=== PATIENT | male | born 1990 | race Caucasian/White ===

== ENCOUNTER 2025-04-08 15:18 | Inpatient (IN) | payer MEDICAID, OTHER ==
[2025-04-08] MEDS: NICOTINE 14MG/24HR PATCH TRANSDERM STA (19:37)
[2025-04-08] MEDS ORDERED: LORazepam 1 MG/0.5 ML VIAL IM PRN (21:12)
[2025-04-08] MEDS ORDERED: HALOPERIDOL LACTATE 5 MG/ML 1 ML VIAL IM PRN (21:12)
[2025-04-08] MEDS ORDERED: IBUPROFEN 600 MG TAB PO PRN (23:23)
[2025-04-08] MEDS ORDERED: ACETAMINOPHEN TAB 325 MG TAB PO PRN (23:23)
[2025-04-08] MEDS ORDERED: MAG HYDROX/AL HYDROX/SIMETH 30 ML CUP PO PRN (23:23)
[2025-04-08] MEDS ORDERED: MAGNESIUM HYDROXIDE 2,400 MG/30 ML CUP PO PRN (23:23)
--- NOTE | 2025-04-09 00:54 | ED ---
General Adult HPI - General Chief complaint: Psychiatric Symptoms Stated complaint: Anxiety Time Seen by Provider: 04/08/25 15:42 Source: patient Mode of arrival: ambulatory Limitations: no limitations - History of Present Illness Initial comments: Patient is a 35 y/o male, transitioning to female, goes by "Seema" presenting for paranoia. History bipolar disorder, questionable hx schizophrenia, per pt and family members. States was admitted to psychiatric facility in October for similar. Was prescribed ability however does not take this. Pt states over the last 2 weeks has had worsening feelings of paranoia and anxiety, worsened by intermittent methamphetamine abuse. This morning, pt used meth at 10 AM and went to a local gas station. There was found to be acting strangely so brought in by PD. Pt does not wish to disclose what they are particularly paranoid about. Endorses auditory hallucinations however refuses to discuss what she is hearing. States they are not telling her to harm herself or others. Denies SI/HI. Denies additional systemic symptoms. Denies fevers, chills, nausea, vomiting, headache, numbness or weakness. Pt's sister filed petition detailing concerns for pt's paranoid behavior and states pt becomes aggressive when she is feeling paranoid. - Related Data Home Medications Medication Instructions Recorded Confirmed No Known Home Medications 04/08/25 04/08/25 Previous Rx's Medication Instructions Recorded ARIPiprazole [Abilify] 2 mg PO DAILY #30 tab 12/03/19 Escitalopram [Lexapro] 20 mg PO DAILY #30 tab 12/03/19 Nicotine 7Mg/24Hr Patch [Habitrol] 1 patch TRANSDERM DAILY #28 patch 12/03/19 Dolutegravir Sodium [Tivicay] 50 mg PO DAILY #28 tab 01/24/23 Emtricitabine/Tenofovir (Tdf) 1 tab PO DAILY #28 tab 01/24/23 [Truvada 200 mg-300 mg Tablet] Allergies Allergy/AdvReac Type Severity Reaction Status Date / Time No Known Allergies Allergy Verified 04/09/25 09:38 Review of Systems ROS Statement: Those systems with pertinent positive or pertinent negative responses have been documented in the HPI. ROS Other: All systems not noted in ROS Statement are negative. Past Medical History History of Any Multi-Drug Resistant Organisms: None Reported Past Surgical History: No Surgical Hx Reported Past Psychological History: Anxiety, Bipolar, Depression Smoking Status: Vaper Past Alcohol Use History: None Reported Past Drug Use History: Methamphetamine - Past Family History Mother Additional Family Medical History / Comment(s): heart disease Father Family Medical History: No Reported History General Exam - General Exam Comments Initial Comments: PE: CONSTITUTIONAL: [no apparent distress, well appearing, disheveled] SKIN: [warm, dry, no jaundice, hives or petechiae] EYES:[ pupils are equally round, extraocular movements intact without nystagmus, clear conjunctiva, non-icteric sclera] HENT: [normocephalic, atraumatic, moist mucus membranes,] NECK: , [Full range of motion, normal appearance] PULMONARY: [clear to auscultation without wheezes, rhonchi, or rales, normal excursion, no accessory muscle use and no stridor] CARDIOVASCULAR:[ regular rate, rhythm, normal S1 and S2. No appreciated murmurs, rubs or gallops. Extremitites are well perfused] MUSCULOSKELETAL: [Extremities have no gross deformity ] NEUROLOGIC: [_a/o x 3, GCS 15, normal mentation and speech. Moves all extremities x 4 without motor or sensory deficit] PSYCHIATRIC:[ anxious mood and guarded affect, makes poor eye contact, difficulty sitting still, thought process is overall linear, though hypervigilent Limitations: no limitations Course Vital Signs 04/08/25 04/08/25 15:22 22:18 Temperature 99.0 F 98.5 F Pulse Rate 129 H 122 H Respiratory 18 17 Rate Blood Pressure 153/117 147/90 O2 Sat by Pulse 98 96 Oximetry Medical Decision Making - Medical Decision Making Was pt. sent in by a medical professional or institution (, PA, [employer], urgent care, hospital, or senior care...) When possible be specific @ -No Did you speak to anyone other than the patient for history (EMS, parent, family, police, friend...)? What history was obtained from this source @Spoke with patient's sister and mother, state patient has a history of bipolar disorder and potentially schizophrenia, patient was admitted to psychiatric facility in October Did you review nursing and triage notes (agree or disagree)? Why? @ -I reviewed nursing and triage notes Were old charts reviewed (outside hosp., previous admission, EMS record, old EKG, old radiological studies, urgent care reports/EKG's, senior care records)? Report findings @ -Medical records reviewed patient had head CT performed on 01/28/2024 due to trauma, ultimately this showed no acute process or evidence of cervical spine fracture Differential Diagnosis (chest pain, altered mental status, abdominal pain women, abdominal pain men, vaginal bleeding, weakness, fever, dyspnea, syncope, headache, dizziness, GI bleed, back pain, seizure, CVA, palpatations, mental health, musculoskeletal)? Differential Mental Health Depression, anxiety, bipolar, psychosis, schizophrenia, borderline personality, situational depression, adjustment disorder, behavioral disorder, brain tumor, malingering, substance abuse, medication reaction, degenerative neurologic disorder, lupus.... This is not meant to be all-inclusive list EKG interpreted by me (3pts min.). @ -As above X-rays interpreted by me (1pt min.). @ -None done CT interpreted by me (1pt min.). @ -None done U/S interpreted by me (1pt. min.). @ -None done What testing was considered but not performed or refused? (CT, X-rays, U/S, labs)? Why? CT head was considered however this is not new behavior for the patient, patient has known mental health history, known methamphetamine What meds were considered but not given or refused? Why? @ -None Did you discuss the management of the patient with other professionals (professionals i.e. , PA, [employer], lab, RT, psych nurse, clinical social work therapist, patient case manager, teacher, immigration services officer, telephonic case manager)? Give summary @ -Discussed with EPS RN recommended inpatient psychiatric hospitalization Was smoking cessation discussed for >3mins.? @ -No Was critical care preformed (if so, how long)? @ -No Were there social determinants of health that impacted care today? How? (Homelessness, low income, unemployed, alcoholism, drug addiction, transportation, low edu. Level, literacy, decrease access to med. care, correction, rehab)? @Substance abuse Was there de-escalation of care discussed even if they declined (Discuss DNR or withdrawal of care, Hospice)? @ -No What co-morbidities impacted this encounter? (DM, HTN, Smoking, COPD, CAD, Cancer, CVA, ARF, Chemo, Hep., AIDS, mental health diagnosis, sleep apnea, morbid obesity)? @Bipolar disorder Was patient admitted / discharged? Hospital course, mention meds given and route, prescriptions, significant lab abnormalities, going to OR and other pertinent info. @ -Admission to psychiatric unit-this is a 35-year-old male, identifies as female presenting today for paranoia. On my assessment patient is disheveled appearing, is pacing around the room, asked for eye contact, guarded and anxious. Does not appear to be responding to internal stimuli. Denies SI or HI. Is conversant and cooperative. Vital signs on arrival did show tachycardia and hypertension I suspect this is secondary to methamphetamine use. Patient was medically cleared for EPS evaluation. After evaluation by EPS, patient was recommended for inpatient psychiatric hospitalization. Patient sister filed a petition detailing patient coming aggressive when paranoid. Clinical certification was recommended by APS, filed by myself. I did discuss this with the patient. Patient was admitted to inpatient psychiatric unit. Undiagnosed new problem with uncertain prognosis? @ -No Drug Therapy requiring intensive monitoring for toxicity (Heparin, Nitro, Insulin, Cardizem)? @ -No Were any procedures done? @ -No Diagnosis/symptom? @, Methamphetamine abuse, paranoia Acute, or Chronic, or Acute on Chronic? @ -Acute Uncomplicated (without systemic symptoms) or Complicated (systemic symptoms)? @ -Complicated Side effects of treatment? @ -No Exacerbation, Progression, or Severe Exacerbation? @ -No - Lab Data Lab Results 04/08/25 Range/Units 19:28 SARS-CoV-2 (PCR) Not Detected (Not Detectd) Disposition Clinical Impression: Paranoia, Methamphetamine abuse Disposition: TRANSFER TO PSYCH HOSP/UNIT Condition: Stable
[2025-04-09] MEDS: LORazepam 1 MG TAB PO PRN (02:56)
--- NOTE | 2025-04-09 12:31 | P.HP ---
Psychiatric H&P - . H&P Date: 04/09/25 History & Physical: Allergies Allergy/AdvReac Type Severity Reaction Status Date / Time No Known Allergies Allergy Verified 04/09/25 09:38 Vital Signs Temp 98.5 F 04/08/25 22:30 Pulse 92 04/08/25 22:30 Resp 20 04/08/25 22:30 BP 137/74 04/08/25 22:30 Pulse Ox 98 04/08/25 22:30 FiO2 Intake & Output 04/08/25 04/09/25 04/09/25 18:59 06:59 18:59 Weight 72.575 kg Laboratory Last Values SARS-CoV-2 (PCR) Not Detected (Not Detectd) 04/08/25 19:28 04/09/25 12:21 IDENTIFYING DATA: Patient is a 35-year-old transgendered female (goes by Seema), living independently, unemployed CHIEF COMPLAINT: Paranoia, psychosis HPI: Patient presented to the hospital with paranoia in the context of methamphetamine use. Patient ended up being brought in by police after being found acting strangely at a local gas station after using meth that day. Sister filled out petition for patient regarding paranoia and increased aggression. EPS assessment reveals, "Upon assesment pt is extrememly guarded and paranoid. Pt is looking around the room searching, appears to be responding to stimuli. Pt denies SI, HI. Pt admits to methamphetamine use, last use yesterday. Pt states they only started a few day ago. Pt was recently admitted at [facility] for 3 weeks d/t psychosis and has been off medications since discharge. Hx of heroin use, current meth use, denies etoh." Patient seen and evaluated on the unit and was agreeable with speaking to marine underwriter in her room. She initially was guarded regarding her substance use, only mentioning nicotine however upon probing she did admit to using meth "on occasion", feeling as though a lot of the symptoms are directly related to this. Patient is not on board with rehab despite encouragement however she claims she will go to rehab if she relapses again. Patient did appear lucid, clear on assessment. Patient did receive Haldol/Ativan as needed overnight. Patient denied ever going to rehab before. Patient denies any suicidal or homicidal ideations intent or plan. At this time patient denies any auditory or visual hallucinations. Patient denies any flight of ideas racing thoughts and increased in goal directed behavior. Patient admits to using methamphetamine, nicotine, rare alcohol and cannabis use. PAST PSYCHIATRIC HISTORY: Patient has a history of unspecified psychosis, MDD. Patient denies being on any psychiatric medications. Her most recent med list from [facility] back in October reveals Abilify 5 mg daily however she has been nonadherent with this med. Patient was hospitalized last in September 2024. Patient denies any psychiatric outpatient follow-up. Patient denies any history of suicide attempts in the past. PMH: as per ER note ALLERGIES: as per EMR SUBSTANCE USE HISTORY: Patient did admit to recent meth use, daily nicotine FAMILY PSYCHIATRIC/SUBSTANCE USE HISTORY: Denies SOCIAL HISTORY: Patient recently changed her name to Seema 2 weeks ago, is single and has no children. She completed high school, is unemployed and lives independently. MENTAL STATUS EXAM: General Appearance: Patient appears to be stated age is alert, directable, and attempts to cooperate. Patient appears to have poor hygiene and grooming. Behavior: Patient is seated without any agitated behavior. Speech: Patient's speech is fluent and nonpressured. Mood/Affect: Patient reports their mood is "better", affect is congruent and blunted but reactive Suicidality/Homicidality: Patient denies having any homicidal ideation intent or plan. Denies any suicidal ideations intent or plan Perceptions: Patient denies any visual hallucinations and denies any auditory hallucinations Though content/process: There is no evidence of any delusional thought content and thought process is linear and goal-directed. There is no evidence of paranoia Memory and concentration: AOX3, grossly intact for the purposes of this session. Can spell "WORLD" backwards Judgment and insight: Poor STRENGTHS/WEAKNESSES: strength is that patient is resilient, has support from sister. Weakness is that patient has poor judgment, abuses substances and is impulsive INTELLECT: Average IMPRESSIONS: Substance-induced psychotic disorder Stimulant use disorder Nicotine dependence PLAN: -Patient is admitted under voluntary status to [facility] for stabilization of psychiatric symptoms and safety. Patient has signed adult voluntary form and and is placed in patient's chart. -Medications : Start melatonin 10 mg at bedtime for insomnia. Will monitor patient for the next 24 hours and then will likely discharge tomorrow back home. Patient is not agreeable with rehab. Will try to encourage patient to obtain UDS - Ativan and Haldol PRN for agitation/aggression -Patient was counselled on substance abuse and desired to cut back on use-Will offer patient subtance use rehab however declined -Patient was informed of the risks, benefits and side effects of the medication and patient verbally consented to taking the medications. Patient did not sign med consent form and was placed in chart. Patient offered and declined patient education sheet for psychotropic medications. -Internal Medicine consult to perform medical evaluation and physical. -NRT -nicotine patch -SW on board for discharge planning. Encourage patient to participate in groups to work on coping skills. Anticipate discharge back home tomorrow pending stabilization of psychosis
[2025-04-09] MEDS: MELATONIN 5 MG TABLET PO SCH (20:41)
--- NOTE | 2025-04-09 21:01 | P.CONS ---
History of Present Illness - Reason for Consult Consult date: 04/09/25 medical co management - Chief Complaint psychosis - History of Present Illness Seema is a 35-year-old male who is assigned male at . She presents to the hospital today as she is complaining of psychosis. She reports that she has had increased paranoia and is worried about her safety. She reports that she also has been having auditory hallucinations. She reports that she has been hearing voices in her entire life and she has learned to cope with her voices. She denies any suicidal ideation. She denies any homicidal ideation. She reports that she does use recreational drugs and has been using methamphetamines. She reports she does not use any alcohol and does vape. I have reviewed most of her medications and the majority of which are hormone replacement therapy. She reports that she is on estradiol injections for which she takes twice weekly spironolactone 25 mg daily progesterone 100 mg daily along with finasteride. Through shared mutual decision making I had restarted her estradiol orally as we do not have injections. Review of Systems ROS negative except for hpi Past Medical History Past Medical History: No Reported History History of Any Multi-Drug Resistant Organisms: None Reported Past Surgical History: No Surgical Hx Reported Past Anesthesia/Blood Transfusion Reactions: No Reported Reaction Past Psychological History: Anxiety, Bipolar, Depression Smoking Status: Vaper Past Alcohol Use History: None Reported Past Drug Use History: Methamphetamine - Past Family History Mother Additional Family Medical History / Comment(s): heart disease Father Family Medical History: No Reported History Medications and Allergies Home Medications Medication Instructions Recorded Confirmed Type ARIPiprazole [Abilify] 2 mg PO DAILY #30 tab 12/03/19 01/15/20 Rx Escitalopram [Lexapro] 20 mg PO DAILY #30 tab 12/03/19 01/15/20 Rx Nicotine 7Mg/24Hr Patch [Habitrol] 1 patch TRANSDERM DAILY #28 patch 12/03/19 01/15/20 Rx Dolutegravir Sodium [Tivicay] 50 mg PO DAILY #28 tab 01/24/23 Rx Emtricitabine/Tenofovir (Tdf) 1 tab PO DAILY #28 tab 01/24/23 Rx [Truvada 200 mg-300 mg Tablet] No Known Home Medications 04/08/25 04/08/25 History Allergies Allergy/AdvReac Type Severity Reaction Status Date / Time No Known Allergies Allergy Verified 04/09/25 09:38 Physical Exam Vitals: Vital Signs Temp Pulse Pulse Resp BP BP Pulse Ox 04/08/25 22:30 98.5 F 92 20 137/74 98 04/08/25 22:18 98.5 F 122 H 17 147/90 96 Intake and Output 04/09/25 04/09/25 04/09/25 06:59 14:59 22:59 Other: Weight 72.575 kg General: non toxic, no distress Derm: warm, dry Head: atraumatic, normocephalic, symmetric Eyes: EOMI, no lid lag, anicteric sclera, pupils equal round reactive to light ENT: Nose and ears atraumatic, no thrush, no pharyngeal erythema Neck: No thyromegaly, no cervical lymphadenopathy, trachea midline, supple Mouth: no lip lesion, mucus membranes moist Cardiovascular: S1S2 reg, no murmu Lungs: clear to ascultation bilateral, no ronchi, no rales, no wheeze, no accessory muscle use Abdominal: soft, nontender to palpation, no guarding, no appreciable organomegaly, normal bowel sounds Ext: no gross muscle atrophy Neuro: moving all extremeties psontaously Psych: calm and cooperative Assessment and Plan Assessment: #) Substance induced psychosis. uses methamphtamine at home. primary management as per psychiatry team. methameine cessationr ecommended #) Auditory hallucinations, expresses lifelong histoyr of auditory hallucinations, management as per psychiatry #) Vapaing use, recommedn cessation. nicotine patch while inpatient #) Transgder woman. She uses HRT at home. We will restart home sprinolactone 25 mg daily and finsetride 5 mg daily. She uses estradiol injections twice weekly. Through shared decision making we will start estradiol 1.5 mg daily. She is al so on progesterone which is not part of hospital form Thank you for allowing us to take care of this patient. please do not hesistate to contact us if any questiona rise. cbc, cmp, a1c, uds, lipid profile and tsh pending at the time of this writing.
[2025-04-09 22:10] VITALS: RESP 18
[2025-04-10] MEDS: FINASTERIDE 5 MG TAB PO SCH (08:16)
[2025-04-10] MEDS: SPIRONOLACTONE 25 MG TAB PO SCH (08:16)
[2025-04-10 08:19] LABS: Basophils # (A) 0.02 10*3/uL (0.00-0.10); Basophils % (A) 0.4 %; Eosinophils # (A) 0.23 10*3/uL (0.04-0.35); Eosinophils % (A) 4.1 %; HCT 40.6 % (39.6-50.0); HGB 13.5 g/dL (13.0-17.0); Lymphocytes # (A) 1.59 10*3/uL (0.90-5.00); Lymphocytes % (A) 28.6 %; MCH 31.1 pg (27.0-32.0); MCHC 33.3 g/dL (32.0-37.0); MCV 93.5 fL (80.0-97.0); Monocytes # (A) 0.46 10*3/uL (0.20-1.00); Monocytes % (A) 8.3 %; Neutrophils # (A) 3.22 10*3/uL (1.80-7.70); Neutrophils % (A) 58.1 %; Platelet Count 286 10*3/uL (140-440); RBC 4.34 10*6/uL (4.40-5.60); RDW 11.9 % (11.5-14.5); WBC 5.55 10*3/uL (4.50-10.00)
[2025-04-10 08:21] VITALS: BP 106/55; PULSE 96; TEMP 97.4
[2025-04-10 08:32] LABS: ALT 8 U/L (4-49); AST 15 U/L (17-59); African American GFR (CKD) >90 (>60 ml/min/1.73 sqM); Albumin 3.5 g/dL (3.5-5.0); Alkaline Phosphatase 40 U/L (38-126); Anion Gap 6 mmol/L; Blood Urea Nitrogen 6 mg/dL (9-20); Calcium 9.0 mg/dL (8.4-10.2); Carbon Dioxide 26 mmol/L (22-30); Chloride 106 mmol/L (98-107); Glucose 78 mg/dL (74-99); Non-African American GFR(CKD) >90 (>60 ml/min/1.73 sqM); Potassium 4.3 mmol/L (3.5-5.1); Sodium 138 mmol/L (137-145); Total Protein 6.2 g/dL (6.3-8.2)
--- NOTE | 2025-04-10 11:29 | P.DS ---
Providers Date of admission: 04/08/25 20:49 Expected date of discharge: 04/10/25 Attending physician: Anila Watts MD Consults: 04/08/25 21:10 Consult Physician Routine Consulting Provider: Sushil Physician Consult Reason/Comments: H&P Do you want consulting provider notified?: Yes Primary care physician: Stated None - Discharge Diagnosis(es) (1) Substance-induced psychotic disorder Current Visit: Yes Status: Acute Priority: High (2) Stimulant use disorder Current Visit: Yes Status: Acute Priority: High (3) Nicotine dependence Current Visit: Yes Status: Acute Priority: Low Hospital Course: Admission HPI: Admission note was completed by story writer "Patient presented to the hospital with paranoia in the context of methamphetamine use. Patient ended up being brought in by police after being found acting strangely at a local gas station after using meth that day. Sister filled out petition for patient regarding paranoia and increased aggression. EPS assessment reveals, "Upon assesment pt is extrememly guarded and paranoid. Pt is looking around the room searching, appears to be responding to stimuli. Pt denies SI, HI. Pt admits to methamphetamine use, last use yesterday. Pt states they only started a few day ago. Pt was recently admitted at [facility] for 3 weeks d/t psychosis and has been off medications since discharge. Hx of heroin use, current meth use, denies etoh." Patient seen and evaluated on the unit and was agreeable with speaking to story writer in her room. She initially was guarded regarding her substance use, only mentioning nicotine however upon probing she did admit to using meth "on occasion", feeling as though a lot of the symptoms are directly related to this. Patient is not on board with rehab despite encouragement however she claims she will go to rehab if she relapses again. Patient did appear lucid, clear on assessment. Patient did receive Haldol/Ativan as needed overnight. Patient denied ever going to rehab before. Patient denies any suicidal or homicidal ideations intent or plan. At this time patient denies any auditory or visual hallucinations. Patient denies any flight of ideas racing thoughts and increased in goal directed behavior. Patient admits to using methamphetamine, nicotine, rare alcohol and cannabis use." Hospital course: Upon admission to the unit patient was directable and agreeable to commence treatment and signed adult voluntary form. Patient got along well with other patients on the unit and followed unit protocol. Patient was compliant with the medications and denied any side effects throughout hospital course. Patient was started on melatonin 10 mg at bedtime for insomnia. Patient was not started on any psychotropic medications given the substance use with quick resolution of psychosis pending discontinuation of the substance. Patient spoke of her stressors and engaged in therapy both group and individual. Patient was also seen by medical team for history and physical exam. Throughout the course of the hospitalization patient gradually improved with regards to mood, anxiety, sleep and returned back to their baseline level of functioning. On the day of discharge patient denied any suicidal or homicidal ideations intent or plan denied any auditory or visual hallucinations. The patient denied any access to guns or weapons. Patient denied any paranoia and did not endorse any delusions. Patient does have a significant history of substance abuse and was counseled on abstaining from all substances including alcohol and marijuana. Patient was offered however declined inpatient substance-abuse rehab. Patient was also counseled on the medications and need for regular compliance and was encouraged to follow-up with their outpatient appointment for mental health and also for primary care. Patient to be discharged home alone and will follow-up with [facility]. Mental status exam: General Appearance: Patient appears to be stated age is alert, pleasant, and cooperative. Patient is in no acute distress and has poor hygiene and grooming Behavior: Patient is calmly seated without any agitated behavior. Speech: Patient's speech is fluent and nonpressured. Mood/Affect: Patient reports their mood is "good", affect is congruent and euthymic. Suicidality/Homicidality: Patient denies having any suicidal or homicidal ideation intent or plan. Perceptions: Patient denies any auditory or visual hallucinations. Though content/process: There is no evidence of any delusional thought content and thought process is linear and goal-directed. Memory and concentration: AOX3, grossly intact for the purposes of this session. Can spell "WORLD" backwards correctly. Judgment and insight: Poor Impression: Substance-induced psychotic disorder Stimulant use disorder Nicotine dependence Plan: -Continue with discharge today as patient has improved and stabilized psych iatrically and is not currently an imminent threat to themself and/or others. Patient will remain at chronically elevated risk for harm to self and/or others due to their impulsivity and substance abuse. -Continue medications: n/a -Patient was counseled on the need for medication compliance and appropriate follow-up at mental health and also primary care for medical issues. Patient verbalized understanding and agreed. -Social work to help coordinate patients discharge today. also to ensure safe home environment that guns/weapons are either removed from the home or locked away. Social work also to arrange for patients follow up appointments with [facility] for psychiatric care along with follow up with primary care provider. -Patient counseled on abstaining from recreational drugs and marijuana and alcohol. Was informed/educated on the adverse effects on their physical and mental health. Patient verbally agreed and understood. Patient was offered substance abuse treatment however declined at this time. -Patient was instructed to return to the hospital or seek immediate medical care if their psychiatric or medical symptoms do worsen or reoccur. Abnormal Labs 04/10/25 04/10/25 07:33 07:33 RBC 4.34 L BUN 6 L Creatinine 0.62 L AST 15 L Total Protein 6.2 L Allergies Allergy/AdvReac Type Severity Reaction Status Date / Time No Known Allergies Allergy Verified 04/09/25 09:38 Vital Signs Temp 97.4 F L 04/10/25 08:20 Pulse 96 04/10/25 08:20 Resp 18 04/10/25 08:20 BP 106/55 04/10/25 08:20 Pulse Ox 98 04/09/25 22:09 FiO2 Intake & Output 04/09/25 04/10/25 04/10/25 18:59 06:59 18:59 Weight 72.575 kg Patient Condition at Discharge: Stable Plan - Discharge Summary Discharge Rx Participant: No New Discharge Prescriptions: New Spironolactone [Aldactone] 25 mg PO DAILY tab estradioL [Estrace] 1.5 mg PO DAILY tab Finasteride [Proscar] 5 mg PO DAILY tab Discontinued ARIPiprazole [Abilify] 2 mg PO DAILY #30 tab Nicotine 7Mg/24Hr Patch [Habitrol] 1 patch TRANSDERM DAILY #28 patch Escitalopram [Lexapro] 20 mg PO DAILY #30 tab Dolutegravir Sodium [Tivicay] 50 mg PO DAILY #28 tab Emtricitabine/Tenofovir (Tdf) [Truvada 200 mg-300 mg Tablet] 1 tab PO DAILY #28 tab Discharge Medication List Finasteride [Proscar] 5 mg PO DAILY tab 04/10/25 [Rx] Spironolactone [Aldactone] 25 mg PO DAILY tab 04/10/25 [Rx] estradioL [Estrace] 1.5 mg PO DAILY tab 04/10/25 [Rx] Follow up Appointment(s)/Referral(s): [facility] [NON-STAFF] - 1 Week Patient Instructions/Handouts: Brief Psychotic Disorder (DC), Methamphetamine Abuse (DC) Activity/Diet/Wound Care/Special Instructions: Belongings returned to patient at discharge, see Personal Property Sheet. Discharge instructions given with verbal understanding, papers signed and copies given in discharge folder. Patient verbalized ready for discharge denying irish cidal and homicidal thoughts, verbalized intent to follow up at scheduled psychiatric appointments and take prescribed medications as ordered. Activity and diet as tolerated. Avoid the use of street drugs and alcohol. Take all medications as prescribed. When you need refills on your medications, please contact your medical provider and/or outpatient psychiatrist to have this done. Please go to scheduled outpatient appointment for aftercare treatment. If symptoms return or become worse, call the crisis line at and/or go to the nearest emergency room for evaluation. Pt given discharge instructions, copies of after care. Pt verbalized understanding of the information. Discharged in stable condition. Aware of resources. Discharge/Stand Alone Forms: JULIETA Stuart Discharge Disposition: HOME SELF-CARE
[2025-04-10 15:28] LABS: Cholesterol 124.00 mg/dL (0.00-200.00); HDL Cholesterol 55.60 mg/dL (40.00-60.00); LDL Cholesterol,Calculated 51.4 mg/dL (0.0-131.0); Triglycerides 84.90 mg/dL (0.00-149.00); VLDL Calculation 16.98 mg/dL (5.00-40.00)
== END 2025-04-10 12:22 | disposition home or self-care (01) | DRG 776 ==
LOC: EC 15:18 → 3MHU 20:49
PROVIDERS: ADMIT Psychiatry & Neurology Psychiatry; ATTEND Psychiatry & Neurology Psychiatry
DX: F15.159 Other stimulant abuse with stimulant-induced psychotic disorder, unspecified (principal); F17.290 Nicotine dependence, other tobacco product, uncomplicated; F64.0 Transsexualism; F41.9 Anxiety disorder, unspecified; F31.9 Bipolar disorder, unspecified; G47.00 Insomnia, unspecified; Z79.890 Hormone replacement therapy; Z79.899 Other long term (current) drug therapy; Z71.51 Drug abuse counseling and surveillance of drug abuser; Z11.52 Encounter for screening for COVID-19; Z56.0 Unemployment, unspecified
CPT/HCPCS: 80053; 80061; 83036; 84443; 85025; 87635; 99285

== ENCOUNTER 2025-04-19 07:20 | Emergency (ER) | payer OTHER ==
[2025-04-19 07:45] VITALS: RESP 18; TEMP 98.8
--- NOTE | 2025-04-19 08:15 | ED ---
General Adult HPI - General Chief complaint: Psychiatric Symptoms Stated complaint: Mental Health Time Seen by Provider: 04/19/25 07:23 Source: patient, EMS, RN notes reviewed Mode of arrival: EMS Limitations: no limitations - History of Present Illness Initial comments: Patient is a 35-year-old presenting to the emergency department with concerns with hallucinations. Patient does have a history of this, more so recently. Patient has multiple visual hallucinations, unable to describe. Patient states possible occasional auditory hallucination as well. No suicidal or homicidal thoughts. Patient does admit to multiple drug use in the past week, none today. Patient does drink alcohol occasionally and has had some recently. Patient sometimes drinks a pint a few days per week. No new physical complaints. Patient does feel anxious. - Related Data Previous Rx's Medication Instructions Recorded Finasteride [Proscar] 5 mg PO DAILY tab 04/10/25 Spironolactone [Aldactone] 25 mg PO DAILY tab 04/10/25 estradioL [Estrace] 1.5 mg PO DAILY tab 04/10/25 Allergies Allergy/AdvReac Type Severity Reaction Status Date / Time No Known Allergies Allergy Verified 04/19/25 07:45 Review of Systems ROS Statement: Those systems with pertinent positive or pertinent negative responses have been documented in the HPI. ROS Other: All systems not noted in ROS Statement are negative. Constitutional: Denies: fever Eyes: Denies: eye pain ENT: Denies: ear pain Respiratory: Denies: dyspnea Cardiovascular: Denies: chest pain Psychiatric: Reports: as per HPI, anxiety, visual hallucinations Past Medical History Past Medical History: No Reported History History of Any Multi-Drug Resistant Organisms: None Reported Past Surgical History: Appendectomy, No Surgical Hx Reported Past Anesthesia/Blood Transfusion Reactions: No Reported Reaction Past Psychological History: Anxiety, Bipolar, Depression, Panic Disorder, Schizophrenia Smoking Status: Vaper Past Alcohol Use History: Occasional Past Drug Use History: Cocaine, Heroin, Methamphetamine, Opiates - Past Family History Mother Additional Family Medical History / Comment(s): heart disease Father Family Medical History: No Reported History General Exam Limitations: altered mental status General appearance: alert, in no apparent distress Head exam: Present: normocephalic Eye exam: Present: normal appearance, PERRL, EOMI, nystagmus ENT exam: Present: normal oropharynx Neck exam: Present: normal inspection. Absent: tenderness, meningismus Respiratory exam: Present: normal lung sounds bilaterally Cardiovascular Exam: Present: tachycardia GI/Abdominal exam: Present: soft. Absent: tenderness Extremities exam: Present: normal inspection Neurological exam: Present: alert Expanded Focused psych exam: Present: flight of ideas Skin exam: Present: normal color Course Vital Signs 04/19/25 04/19/25 07:28 10:33 Temperature 98.8 F Pulse Rate 134 H 104 H Respiratory 18 18 Rate Blood Pressure 122/83 99/66 O2 Sat by Pulse 100 100 Oximetry Medical Decision Making - Medical Decision Making Was pt. sent in by a medical professional or institution (, PA, DEVELOPER ADVOCATE, urgent care, hospital, or half-way...) When possible be specific @ -No Did you speak to anyone other than the patient for history (EMS, parent, family, police, friend...)? What history was obtained from this source @ -No Did you review nursing and triage notes (agree or disagree)? Why? @ -I reviewed and agree with nursing and triage notes Were old charts reviewed (outside hosp., previous admission, EMS record, old EKG, old radiological studies, urgent care reports/EKG's, half-way records)? Report findings @ -No old charts were reviewed Differential Diagnosis (chest pain, altered mental status, abdominal pain women, abdominal pain men, vaginal bleeding, weakness, fever, dyspnea, syncope, headache, dizziness, GI bleed, back pain, seizure, CVA, palpatations, mental health, musculoskeletal)? @ -Differential Mental Health Depression, anxiety, bipolar, psychosis, schizophrenia, borderline personality, situational depression, adjustment disorder, behavioral disorder, brain tumor, malingering, substance abuse, encephalopathy, medication reaction, dementia, hypothyroidism, degenerative neurologic disorder, lupus.... This is not meant to be all-inclusive list EKG interpreted by me (3pts min.). @ -As above X-rays interpreted by me (1pt min.). @ -None done CT interpreted by me (1pt min.). @ -None done U/S interpreted by me (1pt. min.). @ -None done What testing was considered but not performed or refused? (CT, X-rays, U/S, labs)? Why? @ -None What meds were considered but not given or refused? Why? @ -None Did you discuss the management of the patient with other professionals (professionals i.e. , PA, DEVELOPER ADVOCATE, lab, RT, psych nurse, social work case manager, stone cutter, teacher, protocol officer, catalytic case operator)? Give summary @ -Case discussed with psychiatric nurse with plans for discharge Was smoking cessation discussed for >3mins.? @ -No Was critical care preformed (if so, how long)? @ -No Were there social determinants of health that impacted care today? How? (Homelessness, low income, unemployed, alcoholism, drug addiction, transpor tation, low edu. Level, literacy, decrease access to med. care, custodial, rehab)? @ -No Was there de-escalation of care discussed even if they declined (Discuss DNR or withdrawal of care, Hospice)? DNR status @ -No What co-morbidities impacted this encounter? (DM, HTN, Smoking, COPD, CAD, Cancer, CVA, ARF, Chemo, Hep., AIDS, mental health diagnosis, sleep apnea, morbid obesity)? @ -History of drug use Was patient admitted / discharged? Hospital course, mention meds given and route, prescriptions, significant lab abnormalities, going to OR and other pertinent info. @ -Patient presents with hallucinations. Patient history is complicated with alcohol and drug use. Patient seen by mental health with plan for discharge. Patient reevaluated and resting comfortably in bed. Patient updated. Patient advised to discontinue alcohol and street drugs Undiagnosed new problem with uncertain prognosis? @ -No Drug Therapy requiring intensive monitoring for toxicity (Heparin, Nitro, Insulin, Cardizem)? @ -No Were any procedures done? @ -No Diagnosis/symptom? @ -Hallucinations Acute, or Chronic, or Acute on Chronic? @ -Acute Uncomplicated (without systemic symptoms) or Complicated (systemic symptoms)? @ -Default Side effects of treatment? @ -No Exacerbation, Progression, or Severe Exacerbation? @ -No Poses a threat to life or bodily function? How? (Chest pain, [place], [place], pneumonia, PE, COPD, DKA, ARF, appy, cholecystitis, CVA, Diverticulitis, Homicidal, Suicidal, threat to staff... and all critical care pts) @ -No - Lab Data Result diagrams: 04/19/25 08:45 04/19/25 08:45 Lab Results 07/27/25 07/27/25 07/27/25 Range/Units 08:45 08:45 08:45 WBC 14.54 H (4.50-10.00) 10*3/uL RBC 4.20 L (4.40-5.60) 10*6/uL Hgb 13.6 (13.0-17.0) g/dL Hct 37.9 L (39.6-50.0) % MCV 90.2 (80.0-97.0) fL MCH 32.4 H (27.0-32.0) pg MCHC 35.9 (32.0-37.0) g/dL Plt Count 311 (140-440) 10*3/uL MPV 9.5 (9.5-12.2) fL Immature Gran % (Auto) 0.3 % Neutrophils % 83.2 % Lymphocytes % 8.0 % Monocytes % 7.6 % Eosinophils % 0.6 % Basophils % 0.3 % Immature Gran # 0.05 H (0.00-0.04) 10*3/uL Neutrophils # 12.09 H (1.80-7.70) 10*3/uL Lymphocytes # 1.16 (0.90-5.00) 10*3/uL Monocytes # 1.11 H (0.20-1.00) 10*3/uL Eosinophils # 0.08 (0.04-0.35) 10*3/uL Basophils # 0.05 (0.00-0.10) 10*3/uL Sodium 135 L (137-145) mmol/L Potassium 4.0 (3.5-5.1) mmol/L Chloride 100 (98-107) mmol/L Carbon Dioxide 25 (22-30) mmol/L Anion Gap 10 mmol/L BUN 8 L (9-20) mg/dL Creatinine 0.75 (0.66-1.25) mg/dL Est GFR (CKD-EPI)AfAm >90 (>60 ml/min/1.73 sqM) Est GFR (CKD-EPI)NonAf >90 (>60 ml/min/1.73 sqM) Glucose 82 (74-99) mg/dL Calcium 8.6 (8.4-10.2) mg/dL Magnesium 1.6 (1.6-2.3) mg/dL Urine Opiates Screen Not Detected (NotDetected) Ur Oxycodone Screen Not Detected (NotDetected) Urine Methadone Screen Not Detected (NotDetected) Ur Barbiturates Screen Not Detected (NotDetected) U Tricyclic Antidepress Not Detected (NotDetected) Ur Phencyclidine Scrn Not Detected (NotDetected) Ur Amphetamines Screen Detected H (NotDetected) U Methamphetamines Scrn Detected H (NotDetected) U Benzodiazepines Scrn Not Detected (NotDetected) Urine Cocaine Screen Not Detected (NotDetected) U Marijuana (THC) Screen Detected H (NotDetected) Disposition Clinical Impression: Hallucinations Disposition: HOME SELF-CARE Condition: Stable Instructions (If sedation given, give patient instructions): Hallucinations (ED) Additional Instructions: Discontinue drug use. Discontinue alcohol use. Please follow-up with mental health services as directed. Please follow-up with your primary care physician in the next couple of days for recheck. Return for thoughts of self-harm, worsening symptoms or other concerns. Is patient prescribed a controlled substance at d/c from ED?: No Referrals: None,Stated [Primary Care Provider] - 1-2 days Forms: [facility]Ps Time of Disposition: 15:20
[2025-04-19] MEDS: SODIUM CHLORIDE 0.9% 1,000 ML IV STA (08:49)
[2025-04-19 09:09] LABS: Basophils # (A) 0.05 10*3/uL (0.00-0.10); Basophils % (A) 0.3 %; Eosinophils # (A) 0.08 10*3/uL (0.04-0.35); Eosinophils % (A) 0.6 %; HCT 37.9 % (39.6-50.0); HGB 13.6 g/dL (13.0-17.0); Lymphocytes # (A) 1.16 10*3/uL (0.90-5.00); Lymphocytes % (A) 8.0 %; MCH 32.4 pg (27.0-32.0); MCHC 35.9 g/dL (32.0-37.0); MCV 90.2 fL (80.0-97.0); Monocytes # (A) 1.11 10*3/uL (0.20-1.00); Monocytes % (A) 7.6 %; Neutrophils # (A) 12.09 10*3/uL (1.80-7.70); Neutrophils % (A) 83.2 %; Platelet Count 311 10*3/uL (140-440); RBC 4.20 10*6/uL (4.40-5.60); RDW 11.6 % (11.5-14.5); WBC 14.54 10*3/uL (4.50-10.00)
[2025-04-19 09:22] LABS: Barbiturate Screen,Urine Not Detected (NotDetected); Benzodiazepines Screen,Urine Not Detected (NotDetected); Opiate Screen,Urine Not Detected (NotDetected); Oxycodone Screen, Urine Not Detected (NotDetected); Phencyclidine Screen,Urine Not Detected (NotDetected); Tricyclic Antidepressant,Urine Not Detected (NotDetected); Urn Cannabinoid Scrn Detected (NotDetected)
[2025-04-19 09:29] LABS: African American GFR (CKD) >90 (>60 ml/min/1.73 sqM); Anion Gap 10 mmol/L; Blood Urea Nitrogen 8 mg/dL (9-20); Calcium 8.6 mg/dL (8.4-10.2); Carbon Dioxide 25 mmol/L (22-30); Chloride 100 mmol/L (98-107); Glucose 82 mg/dL (74-99); Magnesium 1.6 mg/dL (1.6-2.3); Non-African American GFR(CKD) >90 (>60 ml/min/1.73 sqM); Potassium 4.0 mmol/L (3.5-5.1); Sodium 135 mmol/L (137-145)
[2025-04-19] MEDS: ACETAMINOPHEN TAB 500 MG TAB PO STA (15:46)
[2025-04-19 16:01] VITALS: BP 96/50; PULSE 87
== END 2025-04-19 16:01 | disposition home or self-care (01) ==
LOC: EC 07:20
CPT/HCPCS: 36415; 80048; 80306; 82075; 83735; 85025; 99285

== ENCOUNTER 2025-04-23 20:57 | Emergency (ER) | payer OTHER ==
--- NOTE | 2025-04-23 21:21 | ED ---
General Adult HPI - General Chief complaint: Psychiatric Symptoms Stated complaint: Mental Health Source: patient, police, EMS, RN notes reviewed, old records reviewed Mode of arrival: EMS Limitations: no limitations - History of Present Illness Initial comments: 35-year-old patient presenting for mental health evaluation. [place] be paranoid and uncooperative. Patient is calm and cooperative at the time my evaluation. No specific suicidal or homicidal ideation. No physical complaints. Patient was petitioned by family for mental health evaluation. - Related Data Previous Rx's Medication Instructions Recorded Finasteride [Proscar] 5 mg PO DAILY tab 04/10/25 Spironolactone [Aldactone] 25 mg PO DAILY tab 04/10/25 estradioL [Estrace] 1.5 mg PO DAILY tab 04/10/25 Allergies Allergy/AdvReac Type Severity Reaction Status Date / Time No Known Allergies Allergy Verified 04/19/25 07:45 Review of Systems ROS Statement: Those systems with pertinent positive or pertinent negative responses have been documented in the HPI. ROS Other: All systems not noted in ROS Statement are negative. Past Medical History Past Medical History: No Reported History History of Any Multi-Drug Resistant Organisms: None Reported Past Surgical History: Appendectomy Past Anesthesia/Blood Transfusion Reactions: No Reported Reaction Past Psychological History: Anxiety, Bipolar, Depression, Panic Disorder, Schizophrenia Smoking Status: Vaper Past Alcohol Use History: Occasional Past Drug Use History: Cocaine, Heroin, Methamphetamine, Opiates - Past Family History Mother Additional Family Medical History / Comment(s): heart disease Father Family Medical History: No Reported History General Exam Limitations: no limitations General appearance: alert, in no apparent distress Head exam: Present: atraumatic, normocephalic Eye exam: Present: normal appearance, PERRL ENT exam: Present: normal exam Respiratory exam: Present: normal lung sounds bilaterally. Absent: respiratory distress, wheezes Cardiovascular Exam: Present: regular rate, normal rhythm GI/Abdominal exam: Present: soft. Absent: distended, tenderness, guarding Neurological exam: Present: alert, oriented X3. Absent: motor sensory deficit Psychiatric exam: Present: anxious, flat affect Skin exam: Present: warm, dry, intact Course Vital Signs 04/23/25 04/23/25 21:00 22:31 Temperature 98.0 F Pulse Rate 111 H 88 Respiratory 18 17 Rate Blood Pressure 130/89 144/88 O2 Sat by Pulse 97 100 Oximetry Medical Decision Making - Medical Decision Making Was pt. sent in by a medical professional or institution ([facility], [facility], urgent care, hospital, or alf...) When possible be specific @ -No Did you speak to anyone other than the patient for history (EMS, parent, family, police, friend...)? What history was obtained from this source @ -No Did you review nursing and triage notes (agree or disagree)? Why? @ -I reviewed and agree with nursing and triage notes Were old charts reviewed (outside hosp., previous admission, EMS record, old EKG, old radiological studies, urgent care reports/EKG's, alf records)? Report findings @ -No old charts were reviewed Differential Mental Health Depression, anxiety, bipolar, psychosis, schizophrenia, borderline personality, situational depression, adjustment disorder, behavioral disorder, brain tumor, malingering, substance abuse, encephalopathy, medication reaction, dementia, hypothyroidism, degenerative neurologic disorder, lupus.... This is not meant to be all-inclusive list EKG interpreted by me (3pts min.). @ -As above X-rays interpreted by me (1pt min.). @ -None done CT interpreted by me (1pt min.). @ -None done U/S interpreted by me (1pt. min.). @ -None done What testing was considered but not performed or refused? (CT, X-rays, U/S, labs)? Why? @ -None What meds were considered but not given or refused? Why? @ -None Did you discuss the management of the patient with other professionals (professionals i.e. [facility], [facility], lab, RT, psych nurse, social work supervisor, unit coordinator, teacher, project control officer, rehabilitation case coordinator)? Give summary @ -No Was smoking cessation discussed for >3mins.? @ -No Was critical care preformed (if so, how long)? @ -No Were there social determinants of health that impacted care today? How? (Homelessness, low income, unemployed, alcoholism, drug addiction, transportation, low edu. Level, literacy, decrease access to med. care, half-way, rehab)? @ -No Was there de-escalation of care discussed even if they declined (Discuss DNR or withdrawal of care, Hospice)? DNR status @ -No What co-morbidities impacted this encounter? (DM, HTN, Smoking, COPD, CAD, Cancer, CVA, ARF, Chemo, Hep., AIDS, mental health diagnosis, sleep apnea, morbid obesity)? @ -None Was patient admitted / discharged? The patient was medically cleared and evaluated by EPS, felt to be safe for discharge. No active suicidal or homicidal ideation. Patient has been calm and cooperative while in the emergency department. Drug Therapy requiring intensive monitoring for toxicity (Heparin, Nitro, Ins ulin, Cardizem)? @ -No Were any procedures done? @ -No Diagnosis/symptom? @ -Situational depression Acute, or Chronic, or Acute on Chronic? @Acute Uncomplicated (without systemic symptoms) or Complicated (systemic symptoms)? @ -Default Side effects of treatment? @ -No Exacerbation, Progression, or Severe Exacerbation? @ -No Poses a threat to life or bodily function? How? (Chest pain, [place], [place], pneumonia, PE, COPD, DKA, ARF, appy, cholecystitis, CVA, Diverticulitis, Homicidal, Suicidal, threat to staff... and all critical care pts) @ -No - Lab Data Lab Results 04/23/25 Range/Units 21:00 Urine Color Light Yellow Urine Appearance Clear (Clear) Urine pH 6.5 (5.0-8.0) Ur Specific [place] 1.010 (1.001-1.035) Urine Protein Negative (Negative) Urine Glucose (UA) Negative (Negative) Urine Ketones Negative (Negative) Urine Blood Negative (Negative) Urine Nitrite Negative (Negative) Urine Bilirubin Negative (Negative) Urine Urobilinogen 4.0 (<2.0) mg/dL Ur Leukocyte Esterase Negative (Negative) Urine Opiates Screen Not Detected (NotDetected) Ur Oxycodone Screen Not Detected (NotDetected) Urine Methadone Screen Not Detected (NotDetected) Ur Barbiturates Screen Not Detected (NotDetected) U Tricyclic Antidepress Not Detected (NotDetected) Ur Phencyclidine Scrn Not Detected (NotDetected) Ur Amphetamines Screen Detected H (NotDetected) U Methamphetamines Scrn Detected H (NotDetected) U Benzodiazepines Scrn Not Detected (NotDetected) Urine Cocaine Screen Not Detected (NotDetected) U Marijuana (THC) Screen Detected H (NotDetected) Disposition Clinical Impression: Depression Disposition: HOME SELF-CARE Condition: Fair Instructions (If sedation given, give patient instructions): Depression (ED) Additional Instructions: Please follow-up with community mental health Is patient prescribed a controlled substance at d/c from ED?: No Referrals: None,Stated [Primary Care Provider] - 1-2 days Time of Disposition: 22:55
[2025-04-23 21:32] LABS: Bilirubin,Urine Negative (Negative); Blood,Urine Negative (Negative); Color,Urine Light Yellow; Glucose,Urine (UA) Negative (Negative); Ketones,Urine Negative (Negative); Leukocyte Esterase,Urine Negative (Negative); Nitrite,Urine Negative (Negative); PH, Urine 6.5 (5.0-8.0); Protein,Urine Negative (Negative); Specific Gravity,Urine 1.010 (1.001-1.035); Urobilinogen,Urine 4.0 mg/dL (<2.0)
[2025-04-23] MEDS: LORazepam 1 MG TAB PO STA (21:59)
[2025-04-23 22:36] LABS: Barbiturate Screen,Urine Not Detected (NotDetected); Benzodiazepines Screen,Urine Not Detected (NotDetected); Opiate Screen,Urine Not Detected (NotDetected); Oxycodone Screen, Urine Not Detected (NotDetected); Phencyclidine Screen,Urine Not Detected (NotDetected); Tricyclic Antidepressant,Urine Not Detected (NotDetected); Urn Cannabinoid Scrn Detected (NotDetected)
[2025-04-23 22:37] VITALS: RESP 17
[2025-04-23 23:11] VITALS: BP 134/92; PULSE 100; TEMP 97.9
== END 2025-04-23 23:08 | disposition home or self-care (01) ==
LOC: EC 20:57
DX: F32.A Depression, unspecified (principal); F17.290 Nicotine dependence, other tobacco product, uncomplicated
CPT/HCPCS: 80306; 81003; 82075; 87635; 99285